=== PATIENT | male | born 1940 ===

== ENCOUNTER 2016-12-06 08:21 | Day surgery (SDC) | payer MEDICARE, OTHER ==
[2016-12-06 08:47] VITALS: BMI 30.7
[2016-12-06] MEDS ORDERED: Propofol 10 mg/ml Inj (20 ML) ONE (09:36)
--- NOTE | 2016-12-06 09:37 | CP.SDSHP ---
Same Day Surgery H & P - History Proposed Procedure: colonoscopy Pre-Op Diagnosis: history of colon polyps - Previous Medical/Surgical History Cardiac: Hypertension Endocrine/Metabolic: Diabetes - Allergies Allergies: Allergies No Known Allergies Allergy (Verified 09/21/16 10:12) - Physical Exam General Appearance: NAD Vital Signs: Vital Signs 12/06/16 08:47 Temperature 97.3 F L Pulse Rate 59 L Respiratory 16 Rate Blood Pressure 181/61 H O2 Sat by Pulse 100 Oximetry Mental Status: Alert & Oriented x3 Neuro: WNL Heart: WNL Lungs: WNL GI: WNL - {Optional Preform as Required} Abdomen: WNL - Impression Pt. Evaluated Today:Candidate for Anesthesia & Procedure: Yes - Date & Time Date: 12/06/16 Time: 09:37 Short Stay Discharge - Short Stay Discharge Admitting Diagnosis/Reason for Visit: H/O COLON POLYPS Disposition: HOME/ ROUTINE
[2016-12-06 10:26] VITALS: TEMP 97.6
[2016-12-06 10:54] VITALS: RESP 17
[2016-12-06 11:36] VITALS: BP 132/66; PULSE 55; O2SAT 98
== END 2016-12-06 11:34 | disposition home or self-care (01) ==
LOC: C.ENDO 08:21
PROVIDERS: ATTEND Internal Medicine Gastroenterology
DX: K57.32 Diverticulitis of large intestine without perforation or abscess without bleeding (principal); Z86.010 Personal history of colon polyps; K64.8 Other hemorrhoids; D12.2 Benign neoplasm of ascending colon; D12.5 Benign neoplasm of sigmoid colon; D12.3 Benign neoplasm of transverse colon; K62.1 Rectal polyp
CPT/HCPCS: 45388; 82948; 88305; J2704